=== PATIENT | female | born 1965 | race Two or more races ===

== ENCOUNTER → 2024-06-06 | Outpatient (CLI) | payer MEDICAID, SELFPAY ==
--- NOTE | 2024-06-06 11:45 | XR_ITS ---
Examination: Screening digital mammography, bilateral Computer aided detection 3-D breast Tomosynthesis, bilateral Date and time of exam: 06/06/2024, 11:41 AM Comparisons: Previous in [place] 2022. If prior mammograms can be obtained recommend comparison with today's exam. Indications: Screening Technique: Nonmagnified MLO, CC views of the breasts to been obtained, reconstructed from 3-D Tomosynthesis images. R2 computer aided detection program utilized for evaluation of suspicious masses and/or abnormal calcifications. 3-D Tomosynthesis images obtained. Technologist: Findings: There are scattered areas of fibroglandular density. No evidence of abnormal masses or suspicious calcifications. Impression: BI-RADS category 2: Benign findings Recommend 1 year follow-up mammogram
--- NOTE | 2024-06-06 12:20 | XR_ITS ---
Examination: Bone densitometry Date and time of exam:May 29, 2024 12 noon Indications: Menopause age 41 diabetic Technique: Lumbar spine and hip total bone mineralization values of an calculated. Peak reference and age match control results have been displayed. Findings: Lumbar spine total bone mineralization is1.081 gm/cm2. This is 0.3 standard deviations above peak reference. This is 1.6 standard deviations above age-matched controls. Hip total bone mineralization is 1.071 gm/cm2 This is 0.8 standard deviations above peak reference. This is 1. 7 standard deviations above age-matched controls Impression: There is normal mineralization based on lumbar spine measurements. There is normal mineralization based on hip measurements
== END | disposition home or self-care (01) ==
PROVIDERS: Referring Provider Registered Nurse Community Health; Visit Provider Registered Nurse Community Health
DX: Z12.31 Encounter for screening mammogram for malignant neoplasm of breast (principal); R92.323 Mammographic fibroglandular density, bilateral breasts; M81.0 Age-related osteoporosis without current pathological fracture
CPT/HCPCS: 77063; 77067; 77080

== ENCOUNTER → 2024-07-30 | Outpatient (CLI) | payer MEDICAID, SELFPAY ==
--- NOTE | 2024-07-30 08:45 | XR_ITS ---
Examination: Retroperitoneal ultrasound, complete Technique: Multiple high resolution grayscale images of the retroperitoneum obtained, including kidneys and bladder. Exam date and time:July 30, 2024 0911 hours INDICATIONS: Bilateral flank pain beginning one month ago FINDINGS: Right kidney 11.7 cm cortex 1.5 cm Left kidney 10.0 cm renal cortex 1.2 cm Lower pole left renal cyst 5.5 cm Mild renal parenchymal scar formation No bladder mass or bladder calculi Bladder prevoid volume 522 cc IMPRESSION: Bilateral renal cortical thinning Benign lower pole left renal cyst Mild bilateral renal parenchymal scar formation
== END | disposition home or self-care (01) ==
PROVIDERS: PCP Registered Nurse Community Health; Referring Provider Registered Nurse Community Health; Visit Provider Registered Nurse Community Health
DX: N20.0 Calculus of kidney (principal); N28.89 Other specified disorders of kidney and ureter; Z85.51 Personal history of malignant neoplasm of bladder; Z87.448 Personal history of other diseases of urinary system
CPT/HCPCS: 76770